=== PATIENT | female | born 1940 | race Hispanic/Latino ===

== ENCOUNTER 2018-03-12 10:48 | Outpatient (CLI) | payer MEDICARE, OTHER ==
[2018-03-12 11:45] LABS: Blood Urea Nitrogen 23 mg/dL (7-17)
--- NOTE | 2018-03-12 14:22 | Cat Scan Report ---
CT ABDOMEN WITH CONTRAST HISTORY: Abnormal results of liver function studies. TECHNIQUE: Helical CT following IV contrast. Sagittal and coronal reformatted images. FINDINGS: Mild cardiomegaly is partially imaged at the lung bases. The visualized lung bases are adequately aerated. The liver is normal size, contour and attenuation. No parenchymal liver disease, mass or cyst is identified. The portal venous system and hepatic veins are patent. The gallbladder has been surgically removed. Postcholecystectomy dilatation the common bile duct is noted. The pancreas, spleen, kidneys and adrenal glands are unremarkable. The visualized bowel loops are within normal limits given no oral contrast was administered. Appendectomy changes are suspected, correlate with history. There are mild diffuse aortic calcifications but no stenosis or aneurysm. No evidence for adenopathy, ascites, free air or inflammatory changes. Levoscoliosis of the thoracolumbar spine with degenerative changes is noted. IMPRESSION: Unremarkable CT appearance of the liver. Mild cardiomegaly. Cholecystectomy. Scoliosis.
== END 2018-03-12 10:49 | disposition home or self-care (01) ==
LOC: CT 10:48
PROVIDERS: ATTEND Internal Medicine
DX: I70.0 Atherosclerosis of aorta (principal); R94.5 Abnormal results of liver function studies; I51.7 Cardiomegaly; M47.894 Other spondylosis, thoracic region; M41.84 Other forms of scoliosis, thoracic region; E78.00 Pure hypercholesterolemia, unspecified; I10 Essential (primary) hypertension; K21.9 Gastro-esophageal reflux disease without esophagitis; J45.909 Unspecified asthma, uncomplicated; E03.9 Hypothyroidism, unspecified; Z96.652 Presence of left artificial knee joint; Z96.651 Presence of right artificial knee joint; Z90.11 Acquired absence of right breast and nipple; Z90.49 Acquired absence of other specified parts of digestive tract; Z87.891 Personal history of nicotine dependence
CPT/HCPCS: 36415; 74160; 82565; 84520; Q9967